=== PATIENT | female | born 1965 | race Caucasian/White ===

== ENCOUNTER → 2018-05-18 | Outpatient (CLI) | payer BC ==
[~2018-05-18] MED LIST: IOHEXOL 240 MG/ML 50ML VIAL. ONE; IOHEXOL 240 MG/ML 50ML VIAL. PO ONE; IOHEXOL 300 MG/ML 75 ML VIAL. IV ONE
--- NOTE | 2018-05-18 11:55 | RAD ---
PQRS Compliance Statement: One or more of the following individualized dose reduction techniques were utilized for this examination: 1. Automated exposure control 2. Adjustment of the mA and/or kV according to patient size 3. Use of iterative reconstruction technique CT abdomen/pelvis with contrast 05/18/2018 12:00 AM INDICATION: Left lower quadrant abdominal pain for 3 weeks. History of diverticulitis. COMPARISON: None available TECHNIQUE: Multiple axial CT images of the abdomen and pelvis were obtained after the intravenous administration of 75 mL Omnipaque 300. Coronal and sagittal reformats are provided. FINDINGS: Lung bases are clear. Heart size is within normal limits. There is a 9 x 7.5 cm cyst involving the right hepatic lobe, segment VII. There is minor intrahepatic biliary ductal dilatation. Gallbladder surgically absent. Common bile duct is normal in appearance. Spleen, bilateral adrenal glands and pancreas are normal in appearance. The abdominal aorta is normal in course and caliber. There are no pathologically enlarged lymph nodes in the abdomen and pelvis. There is no abdominal free fluid. There is no free intraperitoneal air. There is a 3 mm nonobstructing calculus in the inferior pole the left kidney. Kidneys enhance symmetrically. There is no hydronephrosis. No suspicious renal masses are identified. Phleboliths are identified within the pelvis. Oral contrast was administered. Opacified bowel loops demonstrate normal mucosal fold pattern. Small and large bowel are normal in caliber. There is no evidence for bowel obstruction. There are no pericolonic inflammatory changes. Appendix is not visualized and may be surgically absent. The right colon and transverse colon is predominantly fluid-filled. Correlate with any symptoms of diarrhea. Mild colonic diverticulosis is identified in the region of the sigmoid colon without adjacent inflammatory changes to suggest diverticulitis. No suspicious pelvic abnormality is visualized. Urinary bladder is within normal limits given degree of distention. No suspicious osseous abnormalities visualized. IMPRESSION: 1. Mild colonic diverticulosis without adjacent inflammatory changes to suggest diverticulitis. 2. Fluid-filled right colon and transverse colon. Correlate with any symptoms of diarrhea. No pericolonic inflammatory changes are visualized. No evidence for bowel obstruction. 3. Appendix appears surgically absent. 4. 3 mm nonobstructing calculi in inferior pole the left kidney. 5. Large right hepatic cyst measuring 9 cm. 6. Surgically absent gallbladder. Minor intrahepatic biliary ductal dilatation. Findings may be secondary to reservoir effect status post cholecystectomy. Electronically signed by: Cora Hester MD (05/18/2018 11:51 AM) [id number]
== END | disposition home or self-care (01) ==
LOC: PMG 10:08
PROVIDERS: ATTEND Physician Assistant
DX: K57.30 Diverticulosis of large intestine without perforation or abscess without bleeding (principal); N20.0 Calculus of kidney; K76.89 Other specified diseases of liver; Z90.49 Acquired absence of other specified parts of digestive tract
CPT/HCPCS: 74177; Q9966; Q9967

== ENCOUNTER → 2021-07-28 | Outpatient (CLI) | payer BC ==
--- NOTE | 2021-07-28 10:35 | RAD ---
EXAM: Bilateral lower extremity arterial Doppler sonogram. HISTORY: Vasculitis. Peripheral vascular disease. TECHNIQUE: Velazquez scale and color Doppler sonographic imaging of the lower 70 arteries with spectral wa veform analysis was performed. COMPARISON: None. FINDINGS: There are and normal triphasic waveforms throughout the lower extremity arteries, with exce ption of a monophasic waveform within the right deep femoral artery. There are normal peak systolic v elocities throughout the lower extremity arteries. IMPRESSION: 1. Monophasic waveform within the right deep femoral artery. This can be seen with hemodynamically si gnificant proximal stenosis. 2. No additional evidence of hemodynamically significant stenosis or arterial occlusion. Electronically signed by: Rani Moreira MD (07/28/2021 10:32 AM) [id number]
== END ==
LOC: US 09:40
PROVIDERS: ATTEND Physician Assistant Medical
DX: L95.9 Vasculitis limited to the skin, unspecified (principal)
CPT/HCPCS: 93925